=== PATIENT | male | born 1990 | race Two or more races ===

== ENCOUNTER 2017-12-04 19:51 | Emergency (ER) | payer BC ==
[~2017-12-04] VITALS: Ht 177.8 cm; Wt 67.0 kg
[2017-12-04] MEDS ORDERED: TETanus/Pertussis (Acell)/Diphther VAC/PF (Tdap-Adult) 0.5ml syringe IM ONE (20:30)
[2017-12-04 20:41] VITALS: BP 128/68
== END 2017-12-04 20:42 | disposition home or self-care (01) ==
LOC: ER 19:51
DX: S61.431A Puncture wound without foreign body of right hand, initial encounter (principal); X58.XXXA Exposure to other specified factors, initial encounter; Y93.89 Activity, other specified; Y92.89 Other specified places as the place of occurrence of the external cause; Y99.8 Other external cause status
CPT/HCPCS: 90471; 90715; 99283